=== PATIENT | male | born 1955 | race Caucasian/White ===

== ENCOUNTER 2020-05-30 10:02 | Outpatient (CLI) | payer BC, SELFPAY | END 2020-05-30 10:03 | disposition home or self-care (01) | LOC: ANHCOVIDVC 10:02 | PROVIDERS: PCP Family Medicine | DX: Z23 Encounter for immunization (principal) | CPT/HCPCS: 0001A; 91300 ==

== ENCOUNTER 2020-06-20 09:56 | Outpatient (CLI) | payer BC, SELFPAY | END 2020-06-20 09:57 | disposition home or self-care (01) | LOC: ANHCOVIDVC 09:57 | PROVIDERS: PCP Family Medicine | DX: Z23 Encounter for immunization (principal) | CPT/HCPCS: 0002A; 91300 ==

== ENCOUNTER 2024-01-26 09:32 | Outpatient (CLI) | payer OTHER, SELFPAY ==
[2024-01-26 10:31] LABS: Hematocrit 45.1 % (42.0-52.0); Hemoglobin 15.5 g/dL (14.0-18.0); Mean Corpuscular HGB Conc 34.4 g/dl (32-36); Mean Corpuscular Hemoglobin 32.1 pg (26-34); Mean Corpuscular Volume 93.4 fl (80-100); Mean Platelet Volume 10.6 fl (7.4-10.4); Platelet Count Result 238 k/mm3 (150-375); Red Blood Count 4.83 M/mm3 (4.6-6.20); Red Cell Distribution Width 12.8 % (11.5-14.5); White Blood Count 6.1 K/mm3 (4.5-10.0)
[2024-01-26 10:35] LABS: Add Urine Microscopic? NO; Appearance Urine Clear (Clear); Bilirubin Urine Negative (Negative); Blood Urine Negative (Negative); Color Urine Yellow (Yellow); Glucose Urine UA Negative (Negative); Ketones Urine Negative (Negative); Leukocyte Esterase Ur Negative LEU/UL (Negative); Nitrate Urine Negative (Negative); Protein Urine Negative (Negative); Specific Grav Ur 1.009 (1.001-1.035); Urobilinogen Urine 0.2 mg/dL (<2.0)
[2024-01-26 11:02] LABS: Alanine Aminotransferase 35 U/L (6-50); Albumin Level 4.5 g/dL (3.5-5.1); Alkaline Phosphatase 92 U/L (38-126); Anion Gap 7 mmol/L (4-12); Aspartate Amino Transferase 33 U/L (17-59); Bilirubin,Total 0.5 mg/dL (0.2-1.3); Blood Urea Nitrogen 19 mg/dL (9-20); Calcium 9.2 mg/dL (8.4-10.2); Carbon Dioxide 31 mmol/L (22-30); Chloride 98 mmol/L (98-107); Cholesterol 161 mg/dL (0-200); Estimated Glomerular Filt Rate > 60; Glucose 101 mg/dL (65-110); HDL Direct 45 mg/dL; Potassium 4.7 mmol/L (3.4-5.0); Sodium 136 mmol/L (137-145); Triglycerides 83 mg/dL (<150)
[2024-01-26 11:13] LABS: LDL Cholesterol Direct 87 mg/dL
[2024-01-26 11:29] LABS: Prostate Specific Antigen 2.8 ng/mL (< OR = 4.0)
[2024-01-26 11:38] LABS: Hemoglobin A1C 6.1 % (<5.7)
[2024-01-26 11:48] LABS: Creatinine Urine 55.8 mg/dL
[2024-01-26 11:53] LABS: MALB Creatinine Ratio 16.1 mg/g (0-30)
== END 2024-01-26 09:33 | disposition home or self-care (01) ==
LOC: ANHLAB 09:36
PROVIDERS: PCP Family Medicine; Visit Provider Family Medicine
DX: E11.9 Type 2 diabetes mellitus without complications (principal); E78.5 Hyperlipidemia, unspecified; R35.1 Nocturia; Z00.00 Encounter for general adult medical examination without abnormal findings
CPT/HCPCS: 36415; 80053; 80061; 81003; 82043; 83036; 84153; 84443; 85027

== ENCOUNTER 2024-06-08 02:02 | Day surgery (SDC) | payer OTHER, SELFPAY ==
[2024-05-31 14:04] VITALS: BMI 24.0
[2024-06-08 06:48] VITALS: BP 135/87; PULSE 82; RESP 18; TEMP 36.1; O2SAT 99; BMI 23.7
[2024-06-08] MEDS: LACTATED RINGERS 1,000 ML 150 ML IV CONT (07:10)
[2024-06-08 07:14] LABS: Glucose Point of Care 149 mg/dl (65-105)
--- NOTE | 2024-06-08 07:22 | P.PNAN_ITS ---
Anes - Initial Pre Proc Eval Procedure: Operation Date: 06/08/24 08:45 Proposed Procedures p Screening Colonoscopy - Alfonso Sinclair MD Date/Time: 06/08/24 07:22 Surgeon: Alfonso Sinclair MD Pre Op Diagnosis: Screening for malignant neoplasm of colon Patient Data Age: 69 Gender: M Height: 1.75 m Weight: 72.8 kg Last Vital Signs Temp 36.1 C L 06/08/24 06:48 Pulse 82 06/08/24 06:48 Resp 18 06/08/24 06:48 BP 135/87 06/08/24 06:48 Pulse Ox 99 06/08/24 06:48 O2 Del Method Room Air 06/08/24 06:48 Allergies Allergy/AdvReac Type Severity Reaction Status Date / Time No Known Allergies Allergy Unknown Verified 06/08/24 06:54 Home Medications ?Medication ?Instructions ?Recorded ?Confirmed ?Type metformin 500 mg tablet 1,000 mg (2 x 500 mg) PO BID #360 08/05/23 06/08/24 Rx tabs multivit,calc,mins-folic 240 1 tablet PO DAILY 05/31/24 06/08/24 History mcg-vit K1 30 mcg-lycopene 300 mcg tablet (One Daily [employer]) Laboratory Tests 06/08/24 07:08 POC Capillary Glucose 149 H mg/dl (65-105) Patient hx anesthesia problems: none Family hx anesthesia problems: none Results Review: All pre-operative results and documents have been reviewed as part of the pre- operative evaluation. [facility] Family History Family History Mother Hypertension Family history of diabetes mellitus in first degree relative Family history of coronary artery disease Sibling Family history of malignant neoplasm Family history of diabetes mellitus in first degree relative Social History Social History Smoking status: Never smoker Second hand tobacco smoke exposure: No Alcohol intake: never Substance use: never Substance use type: does not use Living arrangements: with family Occupation/Education: occupation Gender identity (if verbalized by the patient): Male Spiritual care concerns: No Anes - Eval Final PreProcedure Day of Procedure 06/08/24 07:22 Patient weight: normal Heart: regular rate and rhythm Lungs: clear to auscultation Airway: Mallampati scale class II Neurological: alert and oriented Last oral intake: >/= 8 hours ASA classification: II Emergent: no Anesthetic plan: proceed Anesthesia type and monitoring: general GIVS and standard monitoring Results Review: All pre-operative results and documents have been reviewed as part of the pre- operative evaluation. Informed Consent: The patient's anesthetic plan and its attendant risks and benefits were discussed with the patient/family/POA. Questions were solicited and answers provided to the satisfaction of the patient/family/POA.
--- NOTE | 2024-06-08 07:23 | P.PNAN_ITS ---
Anes - Initial Pre Proc Eval Procedure: Operation Date: 06/08/24 08:45 Proposed Procedures p Screening Colonoscopy - Alfonso Sinclair MD Date/Time: 06/08/24 07:23 Surgeon: Alfonso Sinclair MD Pre Op Diagnosis: Screening for malignant neoplasm of colon Patient Data Age: 69 Gender: M Height: 1.75 m Weight: 72.8 kg Last Vital Signs Temp 36.1 C L 06/08/24 06:48 Pulse 82 06/08/24 06:48 Resp 18 06/08/24 06:48 BP 135/87 06/08/24 06:48 Pulse Ox 99 06/08/24 06:48 O2 Del Method Room Air 06/08/24 06:48 Allergies Allergy/AdvReac Type Severity Reaction Status Date / Time No Known Allergies Allergy Unknown Verified 06/08/24 06:54 Home Medications ?Medication ?Instructions ?Recorded ?Confirmed ?Type metformin 500 mg tablet 1,000 mg (2 x 500 mg) PO BID #360 08/05/23 06/08/24 Rx tabs multivit,calc,mins-folic 240 1 tablet PO DAILY 05/31/24 06/08/24 History mcg-vit K1 30 mcg-lycopene 300 mcg tablet (One Daily [employer]) Laboratory Tests 06/08/24 07:08 POC Capillary Glucose 149 H mg/dl (65-105) Patient hx anesthesia problems: none Family hx anesthesia problems: none Results Review: All pre-operative results and documents have been reviewed as part of the pre- operative evaluation. [facility] Family History Family History Mother Hypertension Family history of diabetes mellitus in first degree relative Family history of coronary artery disease Sibling Family history of malignant neoplasm Family history of diabetes mellitus in first degree relative Social History Social History Smoking status: Never smoker Second hand tobacco smoke exposure: No Alcohol intake: never Substance use: never Substance use type: does not use Living arrangements: with family Occupation/Education: occupation Gender identity (if verbalized by the patient): Male Spiritual care concerns: No Anes - Eval Final PreProcedure Day of Procedure 06/08/24 07:23 Patient weight: normal Heart: regular rate and rhythm Lungs: clear to auscultation Airway: Mallampati scale class II Neurological: alert and oriented Last oral intake: >/= 8 hours ASA classification: II Emergent: no Anesthetic plan: proceed Anesthesia type and monitoring: general GIVS and standard monitoring Results Review: All pre-operative results and documents have been reviewed as part of the pre- operative evaluation. Informed Consent: The patient's anesthetic plan and its attendant risks and benefits were discussed with the patient/family/POA. Questions were solicited and answers provided to the satisfaction of the patient/family/POA.
--- NOTE | 2024-06-08 07:27 | PM.IMHP ---
H&P: HPI History of Present Illness Date/Time: 06/08/24 07:27 Chief Complaint: History of colon polyps Narrative: The patient has a history of colonic polyps, the last colonoscopy was in 2018 and had no polyps, however in previous colonoscopy is the patient did have polyps. Review of Systems Review of Systems: All systems reviewed & are unremarkable except as noted in HPI and below PMFSH Family History Family History Mother Hypertension Family history of diabetes mellitus in first degree relative Family history of coronary artery disease Sibling Family history of malignant neoplasm Family history of diabetes mellitus in first degree relative Social History Social History Smoking status: Never smoker Second hand tobacco smoke exposure: No Alcohol intake: never Substance use: never Substance use type: does not use Living arrangements: with family Occupation/Education: occupation Gender identity (if verbalized by the patient): Male Spiritual care concerns: No Meds Home Medications and Allergies Home Medications ?Medication ?Instructions ?Recorded ?Confirmed ?Type metformin 500 mg tablet 1,000 mg (2 x 500 mg) PO BID #360 08/05/23 06/08/24 Rx tabs multivit,calc,mins-folic 240 1 tablet PO DAILY 05/31/24 06/08/24 History mcg-vit K1 30 mcg-lycopene 300 mcg tablet (One Daily [employer]) Allergies Allergy/AdvReac Type Severity Reaction Status Date / Time No Known Allergies Allergy Unknown Verified 06/08/24 06:54 Vital Signs Vital Signs - 24 hr 06/08/24 06:48 Temperature 96.9 F L Pulse Rate 82 Respiratory Rate 18 Blood Pressure 135/87 Pulse Oximetry 99 Oxygen Delivery Room Air Exam Const: General: cooperative and healthy appearing Resp: Effort & Inspection: normal respiratory effort and able to speak in complete sentences Auscultation: clear to auscultation bilaterally Cardio: Rate: regular rate Rhythm: regular rhythm GI: Inspection: normal to inspection GI Palp: No No hepatosplenomegaly present Auscultation: normal bowel sounds Rectal Exam: deferred Skin: General skin exam: normal color Psych: Appearance: grossly normal Mental Status: mental status grossly normal Assessment and Plan Assessment and plan (1) History of colonic polyps: Code(s): Z86.0100 - Personal history of colon polyps, unspecified Status: Acute Assessment and Plan: The patient is deemed a good candidate for the procedure. Consent signed. Will proceed.
[2024-06-08 07:49] VITALS: BP 111/75; PULSE 81; RESP 22; O2SAT 99
[2024-06-08 07:59] VITALS: BP 129/92; PULSE 73; RESP 26; O2SAT 100
[2024-06-08 08:09] VITALS: BP 132/90; PULSE 66; RESP 20; O2SAT 100
== END 2024-06-08 08:16 | disposition home or self-care (01) ==
PROVIDERS: PCP Family Medicine; Referring Provider Family Medicine; Visit Provider Internal Medicine Gastroenterology
PROC: 0DJD8ZZ Inspection of Lower Intestinal Tract, Via Natural or Artificial Opening Endoscopic (ICD-10-PCS; CPT 45378; principal; 2024-06-08 08:45)
DX: Z12.11 Encounter for screening for malignant neoplasm of colon (principal); D12.2 Benign neoplasm of ascending colon; K64.8 Other hemorrhoids; Z79.84 Long term (current) use of oral hypoglycemic drugs; Z80.9 Family history of malignant neoplasm, unspecified; Z82.49 Family history of ischemic heart disease and other diseases of the circulatory system
CPT/HCPCS: 45385; 82948; 88305; J2704; J7120